=== PATIENT | female | born 1960 ===

== ENCOUNTER 2017-10-07 21:14 | Emergency (ER) | payer MEDICAID ==
[2017-10-07 21:40] VITALS: BMI 37.2
[2017-10-07 21:45] VITALS: RESP 18
--- NOTE | 2017-10-07 23:00 | ED PDOC ---
Arrival/HPI - General Chief Complaint: Dental Pain Time Seen by Provider: 10/07/17 22:34 Historian: Patient - History of Present Illness Narrative History of Present Illness (Text): 10/07/17 23:00 Deisy Matthews is a 57 year old female who presents to the Emergency department complaining of swelling to her upper lip to her left cheek tonight. Patient notes some associated pruritus/tingling sensation. Patient denies any diet changes, changes in lotion/detergents, throat swelling, shortness of breath , wheezing, vomiting, dizziness, recent trauma/injury, or any other complaints. Symptom Onset: Gradual Symptom Course: Unchanged Activities at Onset: Light Context: Home Past Medical History - Provider Review Nursing Documentation Reviewed: Yes - Infectious Disease Hx of Infectious Diseases: None - Psychiatric Hx Substance Use: No - Surgical History Hx Section: Yes (x3) - Anesthesia Hx Anesthesia Reactions: No Hx Malignant Hyperthermia: No Family/Social History - Physician Review Nursing Documentation Reviewed: Yes Family/Social History: Unknown Family HX Smoking Status: Never Smoked Hx Alcohol Use: No Hx Substance Use: No Allergies/Home Meds Allergies/Adverse Reactions: Allergies No Known Allergies Allergy (Unverified 10/07/17 23:07) Review of Systems - Physician Review All systems were reviewed & negative as marked: Yes - Review of Systems Constitutional: Normal. absent: Fevers Eyes: Normal ENT: Normal Respiratory: Normal. absent: SOB, Cough Cardiovascular: Normal. absent: Chest Pain Gastrointestinal: Normal. absent: Abdominal Pain, Diarrhea, Nausea, Vomiting Genitourinary Female: Normal. absent: Dysuria, Hematuria, Urine Output Changes , Vaginal Bleeding Musculoskeletal: Normal. absent: Back Pain, Neck Pain Skin: Other (+swelling to upper lip to left cheek). absent: Rash Neurological: Normal. absent: Headache, Dizziness Endocrine: Normal Hemo/Lymphatic: Normal Psychiatric: Normal Physical Exam Vital Signs Reviewed: Yes Vital Signs Temp Pulse Resp BP Pulse Ox 10/07/17 21:14 98.3 F 89 18 181/98 H 96 Temperature: Afebrile Blood Pressure: Hypertensive Pulse: Regular Respiratory Rate: Normal Appearance: Positive for: Well-Appearing, Non-Toxic, Comfortable Pain Distress: None Mental Status: Positive for: Alert and Oriented X 3 - Systems Exam Head: Present: Atraumatic, Normocephalic, Swelling (Non-erythematous swelling to left cheek) Pupils: Present: PERRL Extroacular Muscles: Present: EOMI Conjunctiva: Present: Normal Ears: Present: Normal, NORMAL TM, Normal Canal. No: Erythema, TM Bulging, Fluid Mouth: Present: Moist Mucous Membranes. No: Normal Lips (Non-erythematous swelling to upper lip ) Pharnyx: Present: Normal. No: ERYTHEMA, EXUDATE, TONSILS ENLARGED, Peritonsilar Swelling, Uvular Deviation, Muffled/Hoarse Voice, Strider, Soft Palate/Uvular Edema Nose (External): Present: Atraumatic Nose (Internal): Present: Normal Inspection Neck: Present: Normal Range of Motion Respiratory/Chest: Present: Clear to Auscultation, Good Air Exchange. No: Respiratory Distress, Accessory Muscle Use Cardiovascular: Present: Regular Rate and Rhythm, Normal S1, S2. No: Murmurs Abdomen: Present: Normal Bowel Sounds. No: Tenderness, Distention, Peritoneal Signs Back: Present: Normal Inspection Upper Extremity: Present: Normal Inspection. No: Cyanosis, Edema Lower Extremity: Present: Normal Inspection. No: Edema Neurological: Present: GCS=15, CN II-XII Intact, Speech Normal Skin: Present: Warm, Dry, Normal Color. No: Rashes Psychiatric: Present: Alert, Oriented x 3, Normal Insight, Normal Concentration Medical Decision Making ED Course and Treatment: 10/07/17 23:05 Impression: 57 year old female complaining of swelling to upper lip to her left cheek tonight. Differential Diagnosis included but are not limited to: allergic reaction Plan: -- Benadryl -- Solu-medrol -- Reassess and disposition Progress Notes: - Medication Orders Current Medication Orders: Discontinued Medications Diphenhydramine HCl (Benadryl) 25 mg IVP ONCE ONE Stop: 10/07/17 23:08 Last Admin: 10/07/17 23:20 Dose: 25 mg IVP Administration Document 10/07/17 23:20 DRU (Rec: 10/07/17 23:21 [place] [id number] Charges for Administration # of IVP Administrations 1 Diphenhydramine HCl (Benadryl) 25 mg PO ONCE STA Stop: 10/07/17 23:08 Last Admin: 10/07/17 23:21 Dose: 25 mg Methylprednisolone (Solu-Medrol) 125 mg IVP ONCE ONE Stop: 10/07/17 23:08 Last Admin: 10/07/17 23:20 Dose: 125 mg IVP Administration Document 10/07/17 23:20 DRU (Rec: 10/07/17 23:20 [place] [id number] Charges for Administration # of IVP Administrations 1 - Scribe Statement The provider has reviewed the documentation as recorded by the Scribe Lachelle Dsouza All medical record entries made by the Scribe were at my direction and personally dictated by me. I have reviewed the chart and agree that the record accurately reflects my personal performance of the history, physical exam, medical decision making, and the department course for this patient. I have also personally directed, reviewed, and agree with the discharge instructions and disposition. Disposition/Present on Arrival - Present on Arrival Any Indicators Present on Arrival: No History of DVT/PE: No History of Uncontrolled Diabetes: No Urinary Catheter: No History of Decub. Ulcer: No History Surgical Site Infection Following: None - Disposition Have Diagnosis and Disposition been Completed?: Yes Diagnosis: Allergic reaction Disposition: HOME/ ROUTINE Disposition Time: 00:49 Patient Plan: Discharge Condition: GOOD Additional Instructions: Take meds as prescribed/follow up with your doctor this week Prescriptions: DiphenhydrAMINE [Benadryl] 50 mg PO Q6 PRN #24 cap PRN Reason: Itching / Pruritus predniSONE [Prednisone] 40 mg PO DAILY #10 tab Referrals: Ventura Thapa [facility]N [Primary Care Provider] - Follow up with primary Forms: [employer] ([employer]), WORK NOTE
[2017-10-07] MEDS ORDERED: DiphenhydrAMINE 50 mg/ml Inj IVP ONE (23:07)
[2017-10-08 01:16] VITALS: BP 156/84; PULSE 84; TEMP 98.1; O2SAT 99
== END 2017-10-08 01:14 | disposition home or self-care (01) ==
LOC: ED 21:14
DX: T78.49XA Other allergy, initial encounter (principal); X58.XXXA Exposure to other specified factors, initial encounter
CPT/HCPCS: 96374; 96375; 99282; J1200; J2930